=== PATIENT | female | born 1940 | race Caucasian/White ===

== ENCOUNTER 2021-12-24 21:42 | Emergency (ER) | payer OTHER ==
[~2021-12-24] VITALS: Ht 160 cm; Wt 54.0 kg
--- NOTE | 2021-12-24 22:10 | NUR ---
Julianne thomas in [facility] - 12/24/21 at 2237 by [email or web address] PT CALLED IN [facility], NO ANSWER AT THIS TIME
[2021-12-24 22:41] VITALS: BP 157/83
--- NOTE | 2021-12-24 22:41 | NUR ---
81 Y/O FEMALE BIBA, C/O PAIN IN MID BACK X2DAYS. PATIENT PRESENTS TO ED WITH PAIN FROM THORACO-LUMBAR AND RADIATES ALONG RIBS TO THE FRONT. PT STATES SHE WAS ADJUSTING HERSELF IN BED WHEN SHE THINKS SHE PULLED SOMETHING. SHE STATES SHE NORMALLY USES A WALKER TO AMBULATE BUT IS UNABLE TO SINCE HER INJURY. DENIES N/V/D; SKIN IS PINK/WARM/DRY; AAOX4; LUNGS CLEAR BL; HR EVEN AND REGULAR; PT DENIES ANY FEVER, CP, SOB, OR COUGH AT THIS TIME; PATIENT STATES CONSTANT PAIN OF 10/10 AT THIS TIME; VSS; PATIENT POSITIONED FOR COMFORT; HOB ELEVATED; BEDRAILS UP X2; BED DOWN. ER MD MADE AWARE OF PT STATUS. HX: DM, SCOLIOSIS, SPINAL STENOSIS, PREVIOUS BILATERAL ANKLE INJURIES [facility] MEDS: GLIPIZIDE AND TYLENOL
[2021-12-24] MEDS ORDERED: KETOROLAC 15 MG/ML VIAL IM ONE (23:15)
--- NOTE | 2021-12-24 23:22 | NUR ---
PT [facility] BLS. TAKEN TO BED 6
--- NOTE | 2021-12-24 23:41 | NUR ---
PT TAKEN TO CT
--- NOTE | 2021-12-25 00:01 | NUR ---
PT BACK FROM CT
[2021-12-25] MEDS ORDERED: KETOROLAC 15 MG/ML VIAL IM ONE (01:35)
[2021-12-25] MEDS ORDERED: LIDO4CRE18 TP (04:04)
[2021-12-25] MEDS ORDERED: MELO-174 PO (04:04)
[2021-12-25] MEDS ORDERED: GABA-636 PO (04:05)
--- NOTE | 2021-12-25 04:30 | NUR ---
ER MD AT BEDSIDE DISCUSSING PT CONDITION
[2021-12-25] MEDS ORDERED: traMADol 50 MG TAB PO ONE (05:30)
[2021-12-25 05:55] VITALS: BP 167/68
--- NOTE | 2021-12-25 05:55 | NUR ---
Patient discharged with v/s stable. Written and verbal after care instructions given and explained. Patient alert, oriented and verbalized understanding of instructions. Wheel Chair Assisted with to car. All questions addressed prior to discharge. ID band removed. Patient advised to follow up with PMD. Rx of GABAPENTIN, LIDOCAINE,. AND MELOXICAM given. Patient educated on indication of medication including possible reaction and side effects. Opportunity to ask questions provided and answered. VSS, A/OX4, AMBULATORY W/ ASSISTANCE, UNLABORED BREATHING
== END 2021-12-25 05:55 | disposition home or self-care (01) ==
LOC: MED 21:42
DX: M48.54XA Collapsed vertebra, not elsewhere classified, thoracic region, initial encounter for fracture (principal); M48.56XA Collapsed vertebra, not elsewhere classified, lumbar region, initial encounter for fracture; M48.061 Spinal stenosis, lumbar region without neurogenic claudication; M48.04 Spinal stenosis, thoracic region; G89.29 Other chronic pain; E11.9 Type 2 diabetes mellitus without complications; Z79.899 Other long term (current) drug therapy
CPT/HCPCS: 72128; 72131; 96372; 99285; J1885